=== PATIENT | female | born 1975 | race Caucasian/White ===

== ENCOUNTER 2019-03-30 13:08 | Observation (INO) | payer SELFPAY ==
[2019-03-30] MEDS: Levalbuterol HCl 1.25 MG/3 ML Neb NEB SCH ×2 (17:25→21:38)
[2019-03-30] MEDS ORDERED: Albuterol 8 GM Inhaler INH PRN (17:44)
[2019-03-31] MEDS: Levalbuterol HCl 1.25 MG/3 ML Neb NEB SCH ×4 (02:07→13:00)
[2019-03-31] MEDS: Ibuprofen 600 MG Tab PO PRN ×2 (02:11→11:21)
[2019-03-31] MEDS ORDERED: VALERIAN ROOT 450 MG PO SCH (09:00)
--- NOTE | 2019-03-31 10:28 | PCM.DCSUM1 ---
Discharge Summary - Hospital Course Diagnosis: Stroke: No - Discharge Data Discharge Date: 03/31/19 Discharge Disposition: Home, Self-Care 01 Condition: Good - Referral to Home Health Primary Care Physician: Oliva Barrett MD - Patient Instructions Diet: Usual Diet as Tolerated Driving: May Drive Today Showering/Bathing: May Shower Notify Provider of: Fever, Nausea and/or Vomiting Other/Special Instructions: --If using nebulizer more than 4 hours notify clinic. --Report any fever greater than 101. --Report any worsening shortness of breath and report wheezing. --increase humidification in home as directed. --you will be notified if any concerning lab results returning. --no in-home daycare children while acute illness and/or labs return normal - Discharge Plan *PRESCRIPTION DRUG MONITORING PROGRAM REVIEWED*: Not Applicable *COPY OF PRESCRIPTION DRUG MONITORING REPORT IN PATIENT ALVARO: Not Applicable Prescriptions/Med Rec: Levalbuterol HCl [Xopenex] 1.25 mg NEB Q4HRRT PRN #20 neb PRN Reason: Shortness Of Breath Home Medications: Home Meds Albuterol Sulfate [Albuterol Sulfate Hfa] 1 puff IH Q4H PRN 03/30/19 [History] Ibuprofen [Ibu] 600 mg PO Q4H PRN 03/30/19 [History] Valerian Root [Valerian] 450 mg PO DAILY 03/30/19 [History] Levalbuterol HCl [Xopenex] 1.25 mg NEB Q4HRRT PRN #20 neb 03/31/19 [Rx] Referrals: Jerrell Livingston PSYCHIATRIC [employer]IDES TEACHER [Nurse Practitioner] - (myself or anybody of her choice either this Saturday or early next week) - Discharge Summary/Plan Comment DC Time >30 min.: No Discharge Summary/Plan Comment: Final Dx; --Asthma with atypical exacerbation. History Summary Pleasant 43 year old female admitted in OBS status by Alanna Perez NP from [facility] when she presented with cough, weakness, fatigue, and vomiting all that seem to begin ~1-2 days prior with her having cold-like symptoms. She stated that her symptoms started to get worse over the last 24 hours prior presentation when she started noticing generalized weakness and malaise long with coughing spasms "spells" leading to her having emesis and more shortness of breath and difficulty breathing with subsequent vomiting. Although she does have mild intermittent asthma she had no wheezing. Clinic temperature 99.5. Late January she was treated with azithromycin empirically due to positive pertussis with unimmunized son. 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 PFTs done in October show mild airway obstruction with bronchodilator response. CT of the chest showed a pulmonary nodule which demonstrated Small noncalcified pulmonary nodule right lower lobe from nonspecific indeterminate etiology". Patient refused referral to lung nodule clinic for further evaluation. no smoking history. History of chest pain- Prior work-up including EKG and labwork unremarkable. CT of the chest done with noted pulmonary nodule but otherwise unremarkable. Prior questioning of muscular/esophageal involvement with recommendation for EGD and/or trial of PPI or H2 maria antonia. Pertinent clinical assessment observations Solu-Medrol 125 mg 1 was given in the clinic along with albuterol nebulizer. Ibuprofen 800mg given in clinic for complaints of a headache and fever Temperature 99. WBC 8.4, neutrophils 85% pertussis swab pending hospital course Went well, she had no adverse reactions or side effects to treatments. She did require Xopenex proximally every for coughing spasms. She was given gentle IV fluids. temperature max 98.9. no signs stable, negative influenza panel. Physical exam revealed no wheezing or shortness of breath however dry cough upon morning assessment. no vomiting disposition/DC instructions Patient will be discharged with home self-care, follow-up appointment rai made. Xopenex every 4-6 hours when necessary for wheezing and/or shortness of breath. --If using nebulizer more than 4 hours notify clinic --Report any fever greater than 101 --Report any worsening shortness of breath and report wheezing --increase humidification in home as directed --you will be notified if any concerning lab results returning --no in-home daycare children while acute illness and/or labs return normal - General Info Functional Status: Reports: Tolerating Diet, Incentive Spirometry. Denies: New Symptoms - Review of Systems General: Reports: Malaise Pulmonary: Reports: Cough. Denies: Shortness of Breath, Sputum, Wheezing Cardiovascular: Denies: Chest Pain, Palpitations, Orthopnea Gastrointestinal: Denies: Decreased Appetite - Patient Data Vitals - Most Recent: Last Vital Signs Temp 98.1 F 03/31/19 06:52 Pulse 80 03/31/19 06:52 Resp 16 03/31/19 06:52 BP 91/54 L 03/31/19 06:52 Pulse Ox 96 03/31/19 06:52 Weight - Most Recent: 151 lb 4.8 oz I&O - Last 24 hours: Intake & Output 03/30/19 03/31/19 03/31/19 22:59 06:59 14:59 Intake Total 1450 600 Balance 1450 600 ABIDA Results - Last 24 hrs: Microbiology 03/30/19 13:35 Influenza Type A Antigen Screen - Final Nasal, Unspecified NEGATIVE INFLUENZA A VIRUS AG REFERENCE RANGE: NEGATIVE Influenza Type B Antigen Screen - Final NEGATIVE INFLUENZA B VIRUS AG REFERENCE RANGE: NEGATIVE Med Orders - Current: Current Medications Albuterol (Ventolin Hfa) 0 gm INH Q4H PRN PRN Reason: Other Ibuprofen (Motrin) 600 mg PO Q4H PRN PRN Reason: Pain Last Admin: 03/31/19 02:11 Dose: 600 mg Levalbuterol HCl (Xopenex) 1.25 mg NEB Q8HRRT JAKUB Last Admin: 03/31/19 09:40 Dose: 1.25 mg Discontinued Medications Non-Formulary Medication (Valerian Root [Valerian]) 450 mg PO DAILY JAKUB - Exam Quality Assessment: Denies: Supplemental Oxygen General: Reports: Alert, Oriented, Cooperative, No Acute Distress Lungs: Reports: Clear to Auscultation, Normal Respiratory Effort Cardiovascular: Reports: Regular Rate, Regular Rhythm
== END 2019-03-31 13:40 | disposition home or self-care (01) ==
LOC: KA.MS 13:08
PROVIDERS: ADMIT Nurse Practitioner Family; ATTEND Family Medicine
DX: J45.901 Unspecified asthma with (acute) exacerbation (principal); R53.1 Weakness; N85.6 Intrauterine synechiae; M19.90 Unspecified osteoarthritis, unspecified site; R50.9 Fever, unspecified; R51 Headache; R07.89 Other chest pain; R00.0 Tachycardia, unspecified; Z88.0 Allergy status to penicillin
CPT/HCPCS: 87798; 87804; 94640; A9270-GY; G0378; J7612-GY